=== PATIENT | female | born 1995 | race African-American/Black ===

== ENCOUNTER 2017-03-17 19:32 | Emergency (ER) | payer OTHER ==
[~2017-03-17] VITALS: Ht 162.6 cm; Wt 66.7 kg
[~2017-03-17 19:32] MED LIST: CONZIP100 MG PO; NAPROSYN500 MG PO; NORCO 5/3251 TABLET PO; TRAMADOL HCL50 MG PO
[2017-03-17 19:44] VITALS: BP 128/73
== END 2017-03-17 21:39 | disposition home or self-care (01) ==
LOC: EME 19:32
DX: B34.9 Viral infection, unspecified (principal); J02.9 Acute pharyngitis, unspecified; R09.89 Other specified symptoms and signs involving the circulatory and respiratory systems; R05 Cough; F17.200 Nicotine dependence, unspecified, uncomplicated
CPT/HCPCS: 71020; 87651 90; 99281; 99284